=== PATIENT | female | born 1960 | race Caucasian/White ===

== ENCOUNTER 2025-03-10 15:51 | Inpatient (IN) ==
[2025-03-10] MEDS ORDERED: IOPAMIDOL 100 ML BOTTLE IV ONE (15:52)
[2025-03-10 16:35] LABS: Basophils # (Auto) 0.05 K/mcL (0.00-0.30); Basophils % (Auto) 0.4 % (0.0-2.0); Eosinophils # (Auto) 0.13 K/mcL (0.00-0.70); Eosinophils % (Auto) 1.2 % (0.0-7.0); Hematocrit 43.1 % (34.1-44.9); Lymphocytes # (Auto) 1.18 K/mcL (1.50-4.80); Lymphocytes % (Auto) 10.5 % (15.5-49.0); Mean Cell Volume 88.9 fL (80.0-100.0); Mean Corpuscular HGB Conc 32.5 g/dL (31.0-36.0); Mean Platelet Volume 10.7 fL (8.8-12.5); Monocytes # (Auto) 1.18 K/mcL (0.10-0.90); Monocytes % (Auto) 10.5 % (1.0-12.0); Neutrophils % (Auto) 76.9 % (38.0-78.0); Platelet Count 244 K/mcL (140-440); RBC 4.85 M/mcL (3.59-5.38); Red Cell Distribution Width 13.8 % (11.5-14.5); WBC 11.3 K/mcL (4.5-11.0)
[2025-03-10] MEDS: IPRATROPIUM/ALBUTEROL 3 ML AMPUL.NEB NEB ONE (16:37)
[2025-03-10 16:50] LABS: Blood Urea Nitrogen 14 mg/dL (8-23); Calcium 10.2 mg/dL (8.6-10.4); Carbon Dioxide 20 mmol/L (22-30); Chloride 103 mmol/L (96-108); Glomerular Filtration Rate 67; Glucose 125 mg/dL (70-105); Potassium 3.4 mmol/L (3.3-5.1); Sodium 136 mmol/L (133-145)
[2025-03-10] MEDS: methylPREDNISolone SOD SUCC 125 MG/2 ML VIAL IV ONE (18:48)
[2025-03-10] MEDS: cefTRIAXone 1 GM VIAL IV ONE (18:50)
[2025-03-10] MEDS: AZITHROMYCIN 500 MG in 0.9 % SODIUM CHLORIDE 250 ML IV ONE (18:51)
[2025-03-10] MEDS: ONDANSETRON 4 MG/2 ML VIAL IV ONE (19:14)
[2025-03-10] MEDS: 0.9 % SODIUM CHLORIDE 1,000 ML IV ONE (19:14)
[2025-03-10] MEDS ORDERED: hydrALAZINE 20 MG/ML VIAL IV PRN (21:05)
[2025-03-10] MEDS ORDERED: ONDANSETRON 4 MG/2 ML VIAL IV PRN (21:05)
[2025-03-10] MEDS ORDERED: ACETAMINOPHEN 325 MG TABLET PO PRN (21:05)
[2025-03-10] MEDS: SENNOSIDES 1 TABLET PO SCH (21:08)
[2025-03-10] MEDS: DOCUSATE SODIUM 100 MG CAPSULE PO SCH (21:08)
[2025-03-10] MEDS: cefTRIAXone 2 GM in DEXTROSE 5% IN WATER 50 ML IV SCH (21:08)
[2025-03-10] MEDS: AZITHROMYCIN 500 MG in DEXTROSE 5% IN WATER 250 ML IV SCH (21:09)
[2025-03-10] MEDS: 0.9 % SODIUM CHLORIDE 1,000 ML IV SCH (21:13)
[2025-03-10] MEDS: 0.9 % SODIUM CHLORIDE 10 ML SYRINGE IV SCH (21:38)
[2025-03-10] MEDS: methylPREDNISolone SOD SUCC 125 MG/2 ML VIAL IV SCH (22:20)
[2025-03-11] MEDS: NALOXONE HCL 0.4 MG/ML VIAL IV ONE (00:25)
[2025-03-11] MEDS: IPRATROPIUM/ALBUTEROL 3 ML AMPUL.NEB NEB SCH (01:49)
[2025-03-11] MEDS: NALOXONE HCL 0.4 MG/ML VIAL ONE (05:18)
[2025-03-11 06:17] LABS: Basophils # (Auto) 0.03 K/mcL (0.00-0.30); Basophils % (Auto) 0.4 % (0.0-2.0); Eosinophils # (Auto) 0 K/mcL (0.00-0.70); Eosinophils % (Auto) 0 % (0.0-7.0); Hematocrit 39.5 % (34.1-44.9); Hemoglobin 12.5 g/dL (11.2-15.7); Lymphocytes # (Auto) 0.77 K/mcL (1.50-4.80); Lymphocytes % (Auto) 9.4 % (15.5-49.0); Mean Cell Volume 89.8 fL (80.0-100.0); Mean Corpuscular HGB Conc 31.6 g/dL (31.0-36.0); Mean Platelet Volume 10.6 fL (8.8-12.5); Monocytes # (Auto) 0.16 K/mcL (0.10-0.90); Neutrophils % (Auto) 87.5 % (38.0-78.0); Platelet Count 224 K/mcL (140-440); Red Cell Distribution Width 13.6 % (11.5-14.5); WBC 8.2 K/mcL (4.5-11.0)
[2025-03-11 06:46] LABS: ALT/SGPT 32 U/L (<40); AST/SGOT 23 U/L (<32); Albumin 3.5 gm/dL (3.2-5.2); Alkaline Phosphatase 109 U/L (39-117); Bilirubin,Total < 0.2 mg/dL (0.1-1.0); Blood Urea Nitrogen 13 mg/dL (8-23); Calcium 9.6 mg/dL (8.6-10.4); Carbon Dioxide 22 mmol/L (22-30); Chloride 109 mmol/L (96-108); Globulin 3.4 gm/dL (2.2-3.7); Glomerular Filtration Rate 91; Glucose 204 mg/dL (70-105); Potassium 3.5 mmol/L (3.3-5.1); Sodium 141 mmol/L (133-145)
[2025-03-11] MEDS ORDERED: BETAMETHASONE DIPROPIONATE 0.05% TOPICAL PRN (07:57)
[2025-03-11] MEDS: OMEPRAZOLE 20 MG CAPSULE PO SCH (09:39)
[2025-03-11] MEDS: cefTRIAXone 2 GM in DEXTROSE 5% IN WATER 50 ML IV SCH (09:39)
[2025-03-11] MEDS: amLODIPine 10 MG TABLET PO SCH (09:39)
[2025-03-11] MEDS: ENOXAPARIN 40 MG/0.4 ML SYRINGE SQ SCH (09:40)
[2025-03-11] MEDS: LATANOPROST OPHTH DROPS 2.5ML BOTTLE OU SCH (09:41)
[2025-03-11] MEDS: METOPROLOL TARTRATE 5 MG/5 ML VIAL IV PRN (10:41)
[2025-03-11] MEDS: AZITHROMYCIN 500 MG in 0.9 % SODIUM CHLORIDE 250 ML IV SCH (10:53)
[2025-03-11] MEDS: guaiFENesin/DEXTROMETHORPHAN 5ML UD CUP PO PRN (20:06)
[2025-03-12 08:00] LABS: ABG Methemoglobin 0.1 % (0.4-1.5); VBG Base Excess -4 (-2-3); VBG HCO3 20.8 mmol/L (24.0-28.0); VBG Oxygen Saturation 93.2 % (40.0-70.0); VBG PCO2 38.2 mmHg (41.0-51.0); VBG PH 7.35 U (7.32-7.42); VBG PO2 122.4 mmHg (25.0-40.0); VBG Total CO2 21.9 mmol/L (25.0-29.0)
[2025-03-12 08:09] LABS: ALT/SGPT 46 U/L (<40); AST/SGOT 29 U/L (<32); Albumin 3.5 gm/dL (3.2-5.2); Albumin/Globulin Ratio 1.1 (1.0-2.3); Alkaline Phosphatase 106 U/L (39-117); Bilirubin,Direct < 0.2 mg/dL (0-0.3); Bilirubin,Total < 0.2 mg/dL (0.1-1.0); Blood Urea Nitrogen 17 mg/dL (8-23); Calcium 9.8 mg/dL (8.6-10.4); Carbon Dioxide 22 mmol/L (22-30); Chloride 110 mmol/L (96-108); Globulin 3.3 gm/dL (2.2-3.7); Glomerular Filtration Rate 91; Glucose 159 mg/dL (70-105); Lactate Dehydrogenase 179 U/L (135-225); Phosphorous 3.3 mg/dL (2.5-4.5); Potassium 3.5 mmol/L (3.3-5.1); Sodium 142 mmol/L (133-145); Triglycerides 85 mg/dL (<150); Uric Acid 3.8 mg/dL (2.5-8.0)
[2025-03-12 08:32] LABS: Basophils # (Auto) 0.01 K/mcL (0.00-0.30); Basophils % (Auto) 0.1 % (0.0-2.0); Eosinophils # (Auto) 0 K/mcL (0.00-0.70); Eosinophils % (Auto) 0 % (0.0-7.0); Hematocrit 40.2 % (34.1-44.9); Hemoglobin 12.7 g/dL (11.2-15.7); Lymphocytes # (Auto) 1.16 K/mcL (1.50-4.80); Lymphocytes % (Auto) 7.2 % (15.5-49.0); Mean Cell Volume 91.6 fL (80.0-100.0); Mean Corpuscular HGB Conc 31.6 g/dL (31.0-36.0); Mean Platelet Volume 10.3 fL (8.8-12.5); Monocytes # (Auto) 0.58 K/mcL (0.10-0.90); Monocytes % (Auto) 3.6 % (1.0-12.0); Neutrophils % (Auto) 87.4 % (38.0-78.0); Platelet Count 276 K/mcL (140-440); RBC 4.39 M/mcL (3.59-5.38); Red Cell Distribution Width 13.8 % (11.5-14.5); WBC 16.1 K/mcL (4.5-11.0)
[2025-03-12] MEDS: LEVOFLOXACIN 750 MG/150 ML BAG IV SCH (08:40)
[2025-03-12] MEDS: methylPREDNISolone SOD SUCC 125 MG/2 ML VIAL IV SCH (08:41)
[2025-03-12] MEDS: ACETAZOLAMIDE 500 MG PO SCH (08:56)
[2025-03-12] MEDS ORDERED: SENNOSIDES 1 TABLET PO PRN (11:22)
[2025-03-12] MEDS: POTASSIUM CHLORIDE 20 MEQ TABLET PO ONE (12:17)
[2025-03-12] MEDS: FUROSEMIDE 40 MG/4 ML VIAL IV ONE (12:17)
[2025-03-12] MEDS: traZODone HCL 50 MG TABLET PO PRN (21:19)
[2025-03-13 06:11] LABS: Basophils # (Auto) 0.01 K/mcL (0.00-0.30); Basophils % (Auto) 0.1 % (0.0-2.0); Eosinophils # (Auto) 0 K/mcL (0.00-0.70); Eosinophils % (Auto) 0 % (0.0-7.0); Hematocrit 37.3 % (34.1-44.9); Lymphocytes # (Auto) 1.19 K/mcL (1.50-4.80); Lymphocytes % (Auto) 9.2 % (15.5-49.0); Mean Cell Volume 90.3 fL (80.0-100.0); Mean Corpuscular HGB Conc 32.2 g/dL (31.0-36.0); Mean Platelet Volume 9.7 fL (8.8-12.5); Monocytes # (Auto) 0.83 K/mcL (0.10-0.90); Monocytes % (Auto) 6.4 % (1.0-12.0); Neutrophils % (Auto) 80.8 % (38.0-78.0); Platelet Count 267 K/mcL (140-440); RBC 4.13 M/mcL (3.59-5.38); Red Cell Distribution Width 13.8 % (11.5-14.5)
[2025-03-13 06:41] LABS: ALT/SGPT 50 U/L (<40); AST/SGOT 25 U/L (<32); Albumin 3.3 gm/dL (3.2-5.2); Albumin/Globulin Ratio 1.2 (1.0-2.3); Alkaline Phosphatase 96 U/L (39-117); Bilirubin,Direct < 0.2 mg/dL (0-0.3); Bilirubin,Total < 0.2 mg/dL (0.1-1.0); Blood Urea Nitrogen 22 mg/dL (8-23); Calcium 9.4 mg/dL (8.6-10.4); Carbon Dioxide 22 mmol/L (22-30); Chloride 111 mmol/L (96-108); Globulin 2.8 gm/dL (2.2-3.7); Glomerular Filtration Rate 96; Glucose 167 mg/dL (70-105); Lactate Dehydrogenase 178 U/L (135-225); Potassium 3.7 mmol/L (3.3-5.1); Sodium 140 mmol/L (133-145); Triglycerides 95 mg/dL (<150); Uric Acid 3.7 mg/dL (2.5-8.0)
[2025-03-13] MEDS: methylPREDNISolone SOD SUCC 40 MG/ML VIAL IV SCH (09:04)
[2025-03-13] MEDS: VITAMIN D3 125 MCG TABLET PO SCH (09:06)
[2025-03-13] MEDS: FUROSEMIDE 40 MG/4 ML VIAL IV ONE (11:44)
[2025-03-14 05:57] LABS: Basophils # (Auto) 0.01 K/mcL (0.00-0.30); Basophils % (Auto) 0.1 % (0.0-2.0); Eosinophils # (Auto) 0.07 K/mcL (0.00-0.70); Eosinophils % (Auto) 0.6 % (0.0-7.0); Lymphocytes # (Auto) 2.87 K/mcL (1.50-4.80); Lymphocytes % (Auto) 24.7 % (15.5-49.0); Mean Cell Volume 89.5 fL (80.0-100.0); Mean Corpuscular HGB Conc 32.5 g/dL (31.0-36.0); Mean Platelet Volume 9.8 fL (8.8-12.5); Monocytes % (Auto) 6.9 % (1.0-12.0); Neutrophils % (Auto) 60.9 % (38.0-78.0); Platelet Count 271 K/mcL (140-440); RBC 4.47 M/mcL (3.59-5.38); WBC 11.6 K/mcL (4.5-11.0)
[2025-03-14 06:15] LABS: ALT/SGPT 55 U/L (<40); AST/SGOT 29 U/L (<32); Albumin 3.5 gm/dL (3.2-5.2); Albumin/Globulin Ratio 1.2 (1.0-2.3); Alkaline Phosphatase 97 U/L (39-117); Bilirubin,Direct < 0.2 mg/dL (0-0.3); Bilirubin,Total < 0.2 mg/dL (0.1-1.0); Blood Urea Nitrogen 22 mg/dL (8-23); Calcium 9.5 mg/dL (8.6-10.4); Carbon Dioxide 23 mmol/L (22-30); Chloride 109 mmol/L (96-108); Globulin 2.9 gm/dL (2.2-3.7); Glomerular Filtration Rate 91; Glucose 99 mg/dL (70-105); Lactate Dehydrogenase 207 U/L (135-225); Phosphorous 3.7 mg/dL (2.5-4.5); Potassium 3.4 mmol/L (3.3-5.1); Sodium 142 mmol/L (133-145); Triglycerides 133 mg/dL (<150); Uric Acid 4.4 mg/dL (2.5-8.0)
[2025-03-14] MEDS: LEVOFLOXACIN 750 MG TABLET PO SCH (09:53)
[2025-03-14] MEDS: predniSONE 20 MG TABLET PO SCH (10:08)
[2025-03-14 11:22] VITALS: TEMP 98.1; O2SAT 93
[2025-03-15] MEDS ORDERED: predniSONE 20 MG TABLET PO SCH (08:30)
== END 2025-03-14 16:00 | disposition home or self-care (01) | DRG 871 ==
LOC: ED 15:51 → MEDSUR 21:02
PROVIDERS: ADMIT Internal Medicine; ATTEND Student in an Organized Health Care Education/Training Program